=== PATIENT | male | born 1960 | race Caucasian/White ===

== ENCOUNTER 2017-01-11 10:21 | Emergency (ER) | payer OTHER ==
[~2017-01-11] VITALS: Ht 185.4 cm; Wt 87.3 kg
[2017-01-11] MEDS ORDERED: LIDOCAINE HCL BUFFERED 1% 20 ML VIAL INJ ONE (12:45)
[2017-01-11] MEDS ORDERED: IBUPROFEN 800 MG TABLET PO ONE (13:15)
[2017-01-11] MEDS ORDERED: PERTUSS(ACELL),DIPH,TET VAC/PF 0.5 ML VIAL IM ONE (13:15)
[2017-01-11] MEDS ORDERED: BACITRACIN 0.9 GM PACKET OINTMENT TP ONE (13:15)
[2017-01-11 13:29] VITALS: BP 134/81
== END 2017-01-11 14:06 | disposition home or self-care (01) ==
LOC: EMS 10:25
DX: S61.211A Laceration without foreign body of left index finger without damage to nail, initial encounter (principal); W26.0XXA Contact with knife, initial encounter; Y93.89 Activity, other specified; Y92.513 Shop (commercial) as the place of occurrence of the external cause; Y99.8 Other external cause status
CPT/HCPCS: 12001; 90471; 90715; 99283; J3490